=== PATIENT | female | born 1970 | race Caucasian/White ===

== ENCOUNTER 2018-10-07 10:12 | Emergency (ER) | payer SELFPAY ==
[2018-10-07] MEDS ORDERED: KETOROLAC TROMETHAMINE INJ 30 MG/ML VIAL IM ONE (10:27)
[2018-10-07] MEDS ORDERED: DEXAMETHASONE INJ 4 MG/ML VIAL IM ONE (10:27)
--- NOTE | 2018-10-07 10:30 | ED.PDOC ---
History of Present Illness - General Chief Complaint: General Stated Complaint: R knee discomfort, occ swelling Time Seen by Provider: 10/07/18 10:21 Source: patient, police Exam Limitations: no limitations - History of Present Illness Initial Comments: patient comes in today for 1 week history of right knee pain. Patient states she can not bear weight and has been very swollen and extremely painful. She had no injury, trauma, or change of activity. The pain came on suddenly in 1 day and has not improved. She's never had this before and has no history of arthritis. She denies fever, chills, cough or cold symptoms. She has no past medical history and is allergic only to penicillin. She does smoke but does not take illicit drugs and drinks beer several times a week. Timing/Duration: 1 week Severity: severe Improving Factors: rest Worsening Factors: movement Associated Symptoms: denies symptoms Allergies/Adverse Reactions: Allergies Penicillins Allergy (Verified 10/07/18 10:22) Other Causes an exacerbation of her asthma Home Medications: Ambulatory Orders Colchicine 0.6 mg PO ONCE #1 cap 10/07/18 Ibuprofen 800 mg PO TID PRN #21 tab 10/07/18 Review of Systems - Review of Systems Constitutional: States: no symptoms reported. Denies: chills, fever, malaise EENTM: States: no symptoms reported Respiratory: States: no symptoms reported. Denies: cough, short of breath Cardiology: States: no symptoms reported Gastrointestinal/Abdominal: States: no symptoms reported. Denies: nausea Musculoskeletal: States: see HPI Family Medical History - Family History Mother Family History: No Known Living Status: Still Living Physical Exam - Physical Exam General Appearance: Alert, Comfortable, No apparent distress Ears, Nose, Throat: hearing grossly normal, normal ENT inspection, normal pharynx Neck: non-tender Respiratory: chest non-tender, lungs clear, normal breath sounds Cardiovascular/Chest: normal peripheral pulses, regular rate, rhythm, no JVD, no murmur Gastrointestinal/Abdominal: normal bowel sounds, non tender, soft Extremity: swelling - right knee with swelling, calor, effusion with no erythema no deformity Neurologic: alert, oriented x 3 Progress - Progress Progress: 10/07/18 11:25 patient feeling better. Advised to follow up in the clinic for final diagnosis and possible joint aspiration. Even with normal uric acid that does not rule out gout and that is what clinically is present. IBU and one dose of colchicine to be given. - Results/Orders Results/Orders: Laboratory Results WBC 6.6 K/mm3 (4.8-10.8) 10/07/18 10:34 RBC 4.12 M/mm3 (4.20-5.40) L 10/07/18 10:34 Hgb 14.2 gm/dL (12.0-16.0) 10/07/18 10:34 Hct 41.0 % (36.0-47.0) 10/07/18 10:34 MCV 99.6 fl (81.0-99.0) H 10/07/18 10:34 MCH 34.4 pg (27.0-31.0) H 10/07/18 10:34 MCHC 34.5 g/dL (33.0-37.0) 10/07/18 10:34 RDW 12.1 % (11.5-14.5) 10/07/18 10:34 Plt Count 301 K/mm3 (130-400) 10/07/18 10:34 MPV 7.2 fl (7.40-10.4) L 10/07/18 10:34 Absolute Neuts (auto) 4.20 K/uL (1.8-6.8) 10/07/18 10:34 Absolute Lymphs (auto) 1.70 K/uL (1.0-3.4) 10/07/18 10:34 Absolute Monos (auto) 0.50 K/uL (0.2-0.8) 10/07/18 10:34 Absolute Eos (auto) 0.20 K/uL (0.0-0.4) 10/07/18 10:34 Absolute Basos (auto) 0.10 K/uL (0.0-0.1) 10/07/18 10:34 Neutrophils % 63.4 % (42.0-78.0) 10/07/18 10:34 Lymphocytes % 25.3 % (20.0-50.0) 10/07/18 10:34 Monocytes % 7.9 % (2.0-9.0) 10/07/18 10:34 Eosinophils % 2.4 % (1.0-5.0) 10/07/18 10:34 Basophils % 1.0 % (0.0-2.0) 10/07/18 10:34 Sodium 139 mmol/L (135-145) 10/07/18 10:34 Potassium 3.9 mmol/L (3.6-5.0) 10/07/18 10:34 Chloride 106 mmol/L (101-111) 10/07/18 10:34 Carbon Dioxide 24 mmol/L (21-31) 10/07/18 10:34 Anion Gap 12.9 (12-18) 10/07/18 10:34 BUN 10 mg/dL (7-18) 10/07/18 10:34 Creatinine 0.68 mg/dL (0.6-1.3) 10/07/18 10:34 BUN/Creatinine Ratio 14.7 (10-20) 10/07/18 10:34 Random Glucose 69 mg/dL (70-105) L 10/07/18 10:34 Serum Osmolality 274.9 mOsm/L (275-295) L 10/07/18 10:34 Uric Acid 5.6 mg/dL (2.6-7.2) 10/07/18 10:34 Calcium 9.1 mg/dL (8.4-10.2) 10/07/18 10:34 Total Bilirubin 1.0 mg/dL (0.2-1.0) 10/07/18 10:34 AST 19 IU/L (10-42) 10/07/18 10:34 ALT 22 IU/L (10-60) 10/07/18 10:34 Alkaline Phosphatase 70 IU/L (42-121) 10/07/18 10:34 Serum Total Protein 7.5 gm/dL (6.4-8.2) 10/07/18 10:34 Albumin 4.3 g/dl (3.2-5.5) 10/07/18 10:34 Globulin 3.2 gm/dL (2.3-3.5) 10/07/18 10:34 Albumin/Globulin Ratio 1.3 (1.1-1.9) 10/07/18 10:34 Xray shows effusion no fracture Departure - Departure Clinical Impression: Gout attack Qualifiers: Gout site: knee Gout etiology: unspecified cause Laterality: right Qualified Code(s): M10.9 - Gout, unspecified Disposition: Discharge to Home or Self Care Condition: Fair Departure Forms: ED Discharge - Pt. Copy, Patient Portal Self Enrollment Prescriptions: Colchicine 0.6 mg PO ONCE #1 cap Ibuprofen 800 mg PO TID PRN #21 tab PRN Reason: Pain Home Medications: Ambulatory Orders Colchicine 0.6 mg PO ONCE #1 cap 10/07/18 Ibuprofen 800 mg PO TID PRN #21 tab 10/07/18 Additional Instructions: follow up in clinic for final diagnosis and to see if aspiration is needed. Return to ER for severe increase in pain. Stop IBU for stomach pain and do not take other NSAIDS while taking this medication
--- NOTE | 2018-10-07 10:53 | RAD ---
EXAM DESCRIPTION: Knee,Right 1 or 2 Views CLINICAL HISTORY: 48 years Female, pain COMPARISON: None. TECHNIQUE: 2 views of the right knee. IMPRESSION: No acute displaced fracture. No dislocation. Question of small knee joint effusion. The tibial plateau is intact. No joint effusion. Minimal patellar enthesophyte at the quadriceps tendon insertion. No radiographically apparent soft tissue abnormality. Electronically signed by: Mariano Ortega MD 10/07/2018 10:52 AM CDT
[2018-10-07 11:42] VITALS: BP 141/94; TEMP 98.7; O2SAT 99
== END 2018-10-07 11:38 | disposition home or self-care (01) ==
LOC: ER 10:12
DX: M10.9 Gout, unspecified (principal); F17.200 Nicotine dependence, unspecified, uncomplicated; Z88.0 Allergy status to penicillin
CPT/HCPCS: 36415; 73560; 80053; 84550; 85025; J1100; J1885